=== PATIENT | male | born 1985 | race Caucasian/White ===

== ENCOUNTER 2021-02-04 09:11 | Emergency (ER) | payer OTHER ==
[~2021-02-04] VITALS: Ht 170.2 cm; Wt 71.0 kg
[~2021-02-04 09:11] MED LIST: ASPI-496 PO; OXYC-380 PO
--- NOTE | 2021-02-04 10:03 | NUR ---
cpc: Pt ambulatory to room from lobby at this time.
--- NOTE | 2021-02-04 10:37 | NUR ---
CALL LIGHT WITHIN REACH. BLEEDING CONTROLLED WITH DRESSING IN PLACE.
[2021-02-04] MEDS ORDERED: DIPH,PERTUSS(ACELL),TET VAC/PF 0.5 ML IM-VACC ONE ×2 (10:41→11:00)
[2021-02-04] MEDS ORDERED: LIDOCAINE-MPF 1%, 5ML ONE (10:42)
[2021-02-04] MEDS ORDERED: LIDOCAINE-MPF 1%, 5ML INFIL ONE (11:00)
--- NOTE | 2021-02-04 11:14 | NUR ---
TETANUS GIVEN PER ERP ORDER.
[2021-02-04] MEDS ORDERED: BACITRACIN ZINC OINT 500U/GM, 0.9 GM ONE (12:26)
[2021-02-04 12:35] VITALS: BP 110/62
--- NOTE | 2021-02-04 12:35 | NUR ---
BACITRACIN/BANDAID DRESSING IN PLACE.
== END 2021-02-04 12:39 | disposition home or self-care (01) ==
LOC: ED 12:30
DX: S61.211A Laceration without foreign body of left index finger without damage to nail, initial encounter (principal); S61.213A Laceration without foreign body of left middle finger without damage to nail, initial encounter; W26.9XXA Contact with unspecified sharp object(s), initial encounter; Y93.89 Activity, other specified; Y92.009 Unspecified place in unspecified non-institutional (private) residence as the place of occurrence of the external cause; Y99.8 Other external cause status
CPT/HCPCS: 12042; 90471; 90715; 99285